=== PATIENT | female | born 1950 | race Caucasian/White ===

== ENCOUNTER 2023-08-18 20:19 | Inpatient (IN) | payer OTHER ==
[~2023-08-18] VITALS: Ht 152.4 cm; Wt 76.7 kg
[~2023-08-18 20:19] MED LIST: ALBMDI INH; ALPR-372 PO; AMLO5TAB4 PO; ASPI-1393 PO; CARV25TA55 PO; CEL20 PO; DOCU-144 PO; FLUT1DIS3 INH; ISOS30TA85 PO; LIP40 PO; LOSA-413 PO; ONDA-8 TL; POLY17PO4 PO; PRO40 PO; SEN30 PO; SIME80TA15 PO; SUCR1TAB2 PO
[2023-08-18 20:41] VITALS: BP_SYST 137; PULSE 66; RESP 18; TEMP 97.6; O2SAT 96
[2023-08-18 20:50] LABS: BASOPHILS % (AUTO) 0.4 % (0.0-2.0); EOSINOPHILS % (AUTO) 0.1 % (0.0-4.0); HEMATOCRIT 32.4 % (36-48); HEMOGLOBIN 10.8 g/dL (12.0-16.0); LYMPHOCYTES # (AUTO) 0.7 K/uL (1.0-5.5); LYMPHOCYTES % (AUTO) 7.5 % (20.5-51.5); MEAN CORPUSCULAR HEMOGLOBIN 29 pg (27-31); MEAN CORPUSCULAR HGB CONC 33 % (32-36); MEAN CORPUSCULAR VOLUME 87 fL (79.0-98.0); MONOCYTES # (AUTO) 0.8 K/uL (0.0-1.0); MONOCYTES % (AUTO) 8.5 % (1.7-9.3); NEUTROPHILS # (AUTO) 7.7 K/uL (1.8-7.7); NEUTROPHILS % (AUTO) 83.5 % (40.0-70.0); PLATELET COUNT (AUTO) 216 K/uL (130-430); RED BLOOD CELL COUNT(AUTO) 3.75 MIL/uL (4.2-6.2); RED CELL DISTRIBUTION WIDTH 14.4 % (9.0-15.0); WHITE BLOOD COUNT (AUTO) 9.2 K/uL (4.8-10.8)
[2023-08-18 21:13] LABS: ALANINE AMINOTRANSFERASE 25 U/L (12-78); ALBUMIN 2.8 g/dL (3.4-4.8); ANION GAP 11 (5-15); ASPARTATE AMINOTRANSFERASE 27 U/L (10-37); CALCIUM 11.6 mg/dL (8.4-11.0); CARBON DIOXIDE 24 mmol/L (23-29); CHLORIDE 104 mmol/L (98-107); CREATININE 2.72 mg/dL (0.55-1.30); GLUCOSE 91 mg/dL (74-106); LIPASE 109 U/L (16-77); POTASSIUM 4.4 mmol/L (3.5-5.1); SODIUM SERUM 139 mmol/L (136-145); TOTAL BILIRUBIN 0.5 mg/dL (0.0-1.0); TOTAL PROTEIN, SERUM 7.2 g/dL (6.4-8.3); UREA NITROGEN, BLOOD 36 mg/dL (8-21)
[2023-08-18] MEDS: ONDANSETRON HCL 4 MG/2 ML VIAL IVP ONE (22:54)
[2023-08-18] MEDS: MORPHINE 4 MG INJ. 4 MG/ML VIAL IVP ONE (22:56)
[2023-08-18 23:26] LABS: BILIRUBIN,URINE NEGATIVE (NEGATIVE); BLOOD, URINE NEGATIVE (NEGATIVE); COLOR,URINE YELLOW (YELLOW); GLUCOSE,URINE NEGATIVE (NEGATIVE); KETONES,URINE NEGATIVE (NEGATIVE); NITRITE, URINE NEGATIVE (NEGATIVE); PROTEIN URINE 2+ (NEGATIVE); UROBILINOGEN,URINE 0.2 (0.2-1.0)
[2023-08-18 23:53] LABS: CLARITY/URINE HAZY (CLEAR); LEUKOCYTE ESTERASE ,URINE TRACE (NEGATIVE)
[2023-08-18 23:54] LABS: RBC,URINE 0-3 /HPF (0-3)
[2023-08-18 23:55] LABS: BACTERIA,URINE FEW /HPF (None Seen)
[2023-08-19] MEDS ORDERED: DENO60DI SUBCUT (04:27)
[2023-08-19] MEDS ORDERED: TIZA-198 PO (04:27)
[2023-08-19] MEDS ORDERED: ONDANSETRON HCL 4 MG/2 ML VIAL IVP PRN (05:15)
[2023-08-19] MEDS: NACL 0.9% 1,000 ML IV ONE (07:36)
[2023-08-19] MEDS: MORPHINE 2 MG/ML INJ. SYRINGE IVP PRN ×2 (08:14→14:08)
[2023-08-19 10:58] VITALS: BP_SYST 127; PULSE 64; O2SAT 91
[2023-08-19] MEDS ORDERED: NALOXONE HCL 0.4 MG/ML AMP (NARCAN) IVP PRN (11:00)
[2023-08-19] MEDS ORDERED: ALBUTEROL SULFATE 0.083% 2.5 MG/3 ML VIAL.NEB INH PRN (11:00)
[2023-08-19 11:03] LABS: BASOPHILS % (AUTO) 0.4 % (0.0-2.0); EOSINOPHILS % (AUTO) 0.3 % (0.0-4.0); HEMATOCRIT 30.9 % (36-48); HEMOGLOBIN 10.1 g/dL (12.0-16.0); LYMPHOCYTES # (AUTO) 0.7 K/uL (1.0-5.5); LYMPHOCYTES % (AUTO) 9.9 % (20.5-51.5); MEAN CORPUSCULAR HEMOGLOBIN 29 pg (27-31); MEAN CORPUSCULAR HGB CONC 33 % (32-36); MEAN CORPUSCULAR VOLUME 87 fL (79.0-98.0); MONOCYTES # (AUTO) 0.6 K/uL (0.0-1.0); NEUTROPHILS # (AUTO) 5.9 K/uL (1.8-7.7); NEUTROPHILS % (AUTO) 81.4 % (40.0-70.0); PLATELET COUNT (AUTO) 189 K/uL (130-430); RED BLOOD CELL COUNT(AUTO) 3.55 MIL/uL (4.2-6.2); RED CELL DISTRIBUTION WIDTH 14.6 % (9.0-15.0); WHITE BLOOD COUNT (AUTO) 7.2 K/uL (4.8-10.8)
[2023-08-19] MEDS ORDERED: PANTOPRAZOLE SODIUM 40 MG TAB PO ONE (11:30)
[2023-08-19] MEDS ORDERED: SUCRALFATE 1 GM TABLET PO ONE (11:30)
[2023-08-19] MEDS ORDERED: LOSARTAN POTASSIUM 50 MG TABLET (COZAAR) PO ONE ×2 (11:30)
[2023-08-19] MEDS ORDERED: CARVEDILOL 25 MG TABLET (COREG) PO ONE (11:30)
[2023-08-19] MEDS ORDERED: ISOSORBIDE MONONITRATE 30 MG TAB.ER.24H PO ONE (11:30)
[2023-08-19] MEDS ORDERED: ATORVASTATIN 20 MG TABLET PO ONE (11:30)
[2023-08-19] MEDS ORDERED: CITALOPRAM HYDROBROMIDE 20 MG TABLET PO ONE (11:30)
[2023-08-19 11:37] LABS: ALANINE AMINOTRANSFERASE 22 U/L (12-78); ALBUMIN 2.4 g/dL (3.4-4.8); ANION GAP 6 (5-15); ASPARTATE AMINOTRANSFERASE 22 U/L (10-37); CARBON DIOXIDE 28 mmol/L (23-29); CHLORIDE 109 mmol/L (98-107); CREATININE 2.63 mg/dL (0.55-1.30); GLUCOSE 52 mg/dL (74-106); POTASSIUM 4.7 mmol/L (3.5-5.1); SODIUM SERUM 143 mmol/L (136-145); TOTAL BILIRUBIN 0.4 mg/dL (0.0-1.0); TOTAL PROTEIN, SERUM 6.3 g/dL (6.4-8.3); UREA NITROGEN, BLOOD 36 mg/dL (8-21)
[2023-08-19] MEDS ORDERED: ALPRAZolam 0.25 MG TABLET PO PRN (15:00)
[2023-08-19 17:24] VITALS: BP_SYST 142; PULSE 72; RESP 16; TEMP 98.1
[2023-08-19 17:38] VITALS: BP_SYST 142; PULSE 72; RESP 16; TEMP 98.1; O2SAT 94
[2023-08-19 19:53] VITALS: BP_SYST 126; PULSE 68; RESP 18; TEMP 97.2; O2SAT 92
[2023-08-19] MEDS: CARVEDILOL 25 MG TABLET (COREG) PO SCH (21:00)
[2023-08-19] MEDS: SUCRALFATE 1 GM TABLET PO SCH (21:29)
[2023-08-19] MEDS: HYDROcodone/ACETAMIN 10-325 MG TAB PO PRN (21:30)
[2023-08-20] VITALS (7 sets, daily range): BP systolic 101–163; PULSE 60–70; RESP 16–19; TEMP 97.1–98.7; O2SAT 91–96
[2023-08-20 06:56] LABS: BASOPHILS % (AUTO) 0.3 % (0.0-2.0); EOSINOPHILS # (AUTO) 0.1 K/uL (0.0-0.4); EOSINOPHILS % (AUTO) 0.9 % (0.0-4.0); HEMATOCRIT 31.8 % (36-48); HEMOGLOBIN 10.5 g/dL (12.0-16.0); LYMPHOCYTES # (AUTO) 0.9 K/uL (1.0-5.5); LYMPHOCYTES % (AUTO) 10.9 % (20.5-51.5); MEAN CORPUSCULAR HEMOGLOBIN 29 pg (27-31); MEAN CORPUSCULAR HGB CONC 33 % (32-36); MEAN CORPUSCULAR VOLUME 87 fL (79.0-98.0); MONOCYTES # (AUTO) 0.6 K/uL (0.0-1.0); MONOCYTES % (AUTO) 7.6 % (1.7-9.3); NEUTROPHILS # (AUTO) 6.4 K/uL (1.8-7.7); NEUTROPHILS % (AUTO) 80.3 % (40.0-70.0); PLATELET COUNT (AUTO) 208 K/uL (130-430); RED BLOOD CELL COUNT(AUTO) 3.64 MIL/uL (4.2-6.2); RED CELL DISTRIBUTION WIDTH 14.6 % (9.0-15.0)
[2023-08-20] MEDS: PANTOPRAZOLE SODIUM 40 MG TAB PO SCH (06:58)
[2023-08-20 07:26] LABS: ALANINE AMINOTRANSFERASE 21 U/L (12-78); ALBUMIN 2.2 g/dL (3.4-4.8); ANION GAP 9 (5-15); ASPARTATE AMINOTRANSFERASE 28 U/L (10-37); CALCIUM 11.2 mg/dL (8.4-11.0); CARBON DIOXIDE 26 mmol/L (23-29); CHLORIDE 107 mmol/L (98-107); CREATININE 2.66 mg/dL (0.55-1.30); GLUCOSE 60 mg/dL (74-106); POTASSIUM 4.8 mmol/L (3.5-5.1); SODIUM SERUM 142 mmol/L (136-145); TOTAL BILIRUBIN 0.3 mg/dL (0.0-1.0); TOTAL PROTEIN, SERUM 6.1 g/dL (6.4-8.3); UREA NITROGEN, BLOOD 34 mg/dL (8-21)
[2023-08-20] MEDS: ISOSORBIDE MONONITRATE 30 MG TAB.ER.24H PO SCH (08:33)
[2023-08-20] MEDS: CITALOPRAM HYDROBROMIDE 20 MG TABLET PO SCH (08:33)
[2023-08-20] MEDS: ATORVASTATIN 20 MG TABLET PO SCH (08:34)
[2023-08-20] MEDS: LOSARTAN POTASSIUM 50 MG TABLET (COZAAR) PO SCH (08:36)
[2023-08-20] MEDS: NACL 0.9% 1,000 ML IV ONE (14:45)
[2023-08-20] MEDS: PANTOPRAZOLE SODIUM 40 MG/VIAL (PROTONIX) IVP ONE (14:45)
[2023-08-20] MEDS: SCOPOLAMINE HYDROBROMIDE 1 MG PATCH .72 H (TRANSDERM-SCOP) TD SCH (14:45)
[2023-08-20] MEDS: CINACALCET HCL 30 MG TABLET PO ONE (16:24)
[2023-08-21 00:32] VITALS: BP_SYST 134; PULSE 61; RESP 16; TEMP 98.6; O2SAT 95
[2023-08-21 04:00] VITALS: BP_SYST 145; PULSE 63; RESP 16; TEMP 98.5; O2SAT 94
[2023-08-21 08:00] VITALS: BP_SYST 159; PULSE 64; RESP 16; TEMP 98; O2SAT 96
[2023-08-21] MEDS: CINACALCET HCL 30 MG TABLET PO SCH (09:03)
[2023-08-21] MEDS: PANTOPRAZOLE SODIUM 40 MG/VIAL (PROTONIX) IVP SCH (09:03)
[2023-08-21] MEDS: ONDANSETRON HCL 4 MG/2 ML VIAL IVP PRN (09:11)
[2023-08-21 10:15] LABS: BASOPHILS % (AUTO) 0.3 % (0.0-2.0); EOSINOPHILS # (AUTO) 0.1 K/uL (0.0-0.4); EOSINOPHILS % (AUTO) 1.1 % (0.0-4.0); HEMATOCRIT 28.1 % (36-48); HEMOGLOBIN 9.4 g/dL (12.0-16.0); LYMPHOCYTES # (AUTO) 0.7 K/uL (1.0-5.5); MEAN CORPUSCULAR HEMOGLOBIN 29 pg (27-31); MEAN CORPUSCULAR HGB CONC 33 % (32-36); MEAN CORPUSCULAR VOLUME 87 fL (79.0-98.0); MONOCYTES # (AUTO) 0.5 K/uL (0.0-1.0); MONOCYTES % (AUTO) 7.1 % (1.7-9.3); NEUTROPHILS # (AUTO) 5.7 K/uL (1.8-7.7); NEUTROPHILS % (AUTO) 81.5 % (40.0-70.0); PLATELET COUNT (AUTO) 189 K/uL (130-430); RED BLOOD CELL COUNT(AUTO) 3.24 MIL/uL (4.2-6.2); RED CELL DISTRIBUTION WIDTH 14.3 % (9.0-15.0)
[2023-08-21 10:38] LABS: ALANINE AMINOTRANSFERASE 19 U/L (12-78); ALBUMIN 2.1 g/dL (3.4-4.8); ANION GAP 8 (5-15); ASPARTATE AMINOTRANSFERASE 15 U/L (10-37); CALCIUM 10.6 mg/dL (8.4-11.0); CARBON DIOXIDE 26 mmol/L (23-29); CHLORIDE 108 mmol/L (98-107); CREATININE 2.79 mg/dL (0.55-1.30); GLUCOSE 69 mg/dL (74-106); POTASSIUM 4.7 mmol/L (3.5-5.1); SODIUM SERUM 142 mmol/L (136-145); TOTAL BILIRUBIN 0.3 mg/dL (0.0-1.0); TOTAL PROTEIN, SERUM 5.7 g/dL (6.4-8.3); UREA NITROGEN, BLOOD 32 mg/dL (8-21)
[2023-08-21 11:07] VITALS: BP_SYST 138; PULSE 62; RESP 16; TEMP 98.7; O2SAT 95
[2023-08-21] MEDS: CALCITONIN SALMON,SYNTHETIC 200 UNITS/ML VIAL IM ONE (12:27)
[2023-08-21 15:09] VITALS: BP_SYST 144; PULSE 64; RESP 18; TEMP 98.2; O2SAT 95
[2023-08-21] MEDS: PROCHLORPERAZINE EDISYLATE 10 MG/2 ML VIAL IVP PRN (16:17)
[2023-08-21 20:00] VITALS: BP_SYST 142; PULSE 60; RESP 18; TEMP 98.4; O2SAT 94
[2023-08-21] MEDS: ACETAMINOPHEN 325 MG TABLET PO PRN (22:04)
[2023-08-22] VITALS (8 sets, daily range): BP systolic 130–161; PULSE 61–96; RESP 17–18; TEMP 97.6–98.8; O2SAT 93–97
[2023-08-22 05:35] LABS: BASOPHILS % (AUTO) 0.3 % (0.0-2.0); EOSINOPHILS % (AUTO) 0.5 % (0.0-4.0); HEMATOCRIT 29.3 % (36-48); HEMOGLOBIN 9.7 g/dL (12.0-16.0); LYMPHOCYTES # (AUTO) 0.7 K/uL (1.0-5.5); LYMPHOCYTES % (AUTO) 6.8 % (20.5-51.5); MEAN CORPUSCULAR HEMOGLOBIN 29 pg (27-31); MEAN CORPUSCULAR HGB CONC 33 % (32-36); MEAN CORPUSCULAR VOLUME 87 fL (79.0-98.0); MONOCYTES # (AUTO) 0.6 K/uL (0.0-1.0); MONOCYTES % (AUTO) 6.2 % (1.7-9.3); NEUTROPHILS # (AUTO) 8.3 K/uL (1.8-7.7); NEUTROPHILS % (AUTO) 86.2 % (40.0-70.0); PLATELET COUNT (AUTO) 225 K/uL (130-430); RED BLOOD CELL COUNT(AUTO) 3.38 MIL/uL (4.2-6.2); RED CELL DISTRIBUTION WIDTH 14.4 % (9.0-15.0)
[2023-08-22 06:17] LABS: ALANINE AMINOTRANSFERASE 23 U/L (12-78); ALBUMIN 2.2 g/dL (3.4-4.8); ANION GAP 11 (5-15); ASPARTATE AMINOTRANSFERASE 20 U/L (10-37); CALCIUM 9.7 mg/dL (8.4-11.0); CARBON DIOXIDE 24 mmol/L (23-29); CHLORIDE 108 mmol/L (98-107); CREATININE 2.82 mg/dL (0.55-1.30); GLUCOSE 59 mg/dL (74-106); POTASSIUM 4.8 mmol/L (3.5-5.1); SODIUM SERUM 143 mmol/L (136-145); TOTAL BILIRUBIN 0.3 mg/dL (0.0-1.0); TOTAL PROTEIN, SERUM 6.1 g/dL (6.4-8.3); UREA NITROGEN, BLOOD 30 mg/dL (8-21)
[2023-08-22 07:43] LABS: WHITE BLOOD COUNT (AUTO) 9.6 K/uL (4.8-10.8)
[2023-08-22] MEDS: fentaNYL CITRATE/PF 100 MCG/2 ML AMP ONE (08:15)
[2023-08-22] MEDS: MIDAZOLAM HCL 5 MG/5 ML VIAL ONE (08:16)
[2023-08-22] MEDS ORDERED: ALBUTEROL MDI INHALATION 8 GM INH INH PRN (12:45)
[2023-08-22] MEDS ORDERED: ONDANSETRON 4 MG ODT TAB TL PRN (12:45)
[2023-08-22] MEDS: tiZANidine HCL 4 MG TABLET PO SCH (15:43)
[2023-08-22] MEDS: DOCUSATE SODIUM 100 MG CAPSULE PO SCH (21:27)
[2023-08-23] VITALS (7 sets, daily range): BP systolic 147–202; PULSE 62–74; RESP 16–18; TEMP 97.4–98.4; O2SAT 0–95
[2023-08-23] MEDS: HYDROcodone/ACETAMIN 5-325 MG TAB (NORCO/ VICODIN) PO PRN (00:56)
[2023-08-23] MEDS: hydrALAZINE HCL 25 MG TABLET PO ONE (01:21)
[2023-08-23] MEDS: ASPIRIN 81 MG TABLET(ECOTRIN) PO SCH (10:19)
[2023-08-23] MEDS: SUCRALFATE 1 GM/10 ML UDC GT SCH (17:00)
[2023-08-23] MEDS: cloNIDine HCL 0.1 MG TABLET PO PRN (22:26)
[2023-08-24] MEDS: DIPHENHYDRAMINE HCL 12.5 MG/5 ML UDC PO ONE (01:00)
[2023-08-24 01:06] VITALS: BP_SYST 170; PULSE 70; RESP 18; TEMP 98.5; O2SAT 98
[2023-08-24 05:07] VITALS: BP_SYST 193; PULSE 71; RESP 18; TEMP 98.4; O2SAT 94
[2023-08-24 08:35] VITALS: BP_SYST 148; PULSE 58; RESP 14; TEMP 98; O2SAT 91
[2023-08-24] MEDS: cloNIDine HCL 0.1 MG TABLET PO ONE (09:53)
== END 2023-08-24 10:05 | disposition short-term general hospital (02) | DRG 375 ==
LOC: SED 20:19 → SMU 08-19 05:13
PROVIDERS: ADMIT Family Medicine; ATTEND Family Medicine
DX: C49.A0 Gastrointestinal stromal tumor, unspecified site (principal); E44.0 Moderate protein-calorie malnutrition; N17.9 Acute kidney failure, unspecified; N18.4 Chronic kidney disease, stage 4 (severe); D64.9 Anemia, unspecified; E78.5 Hyperlipidemia, unspecified; E66.9 Obesity, unspecified; E83.52 Hypercalcemia; I12.9 Hypertensive chronic kidney disease with stage 1 through stage 4 chronic kidney disease, or unspecified chronic kidney disease; Z79.899 Other long term (current) drug therapy; Z68.33 Body mass index [BMI] 33.0-33.9, adult
CPT/HCPCS: 36415; 71045; 80053; 81000; 81001; 81015; 83690; 83735; 83970; 85025; 86301; 86886; 86900; 86901; 87086; 93005; 94070; 94760; 96374; 96375; 97110-GP; 97112-GP; 97116-GP; 97530-GP; 99285; C9113; J0630; J0780; J2250; J2270; J2405; J3010; Q0162